=== PATIENT | female | born 2005 | race Caucasian/White ===

== ENCOUNTER 2023-07-23 13:00 | Outpatient (REF) | payer OTHER, SELFPAY ==
--- NOTE | ~2023-07-23 | US_ITS ---
EXAMINATION: US PELVIS COMPLETE CLINICAL INFORMATION: Pelvic and perineal pain COMPARISON: None TECHNIQUE: Transabdominal and transvaginal imaging was performed though transvaginal imaging was terminated prematurely. FINDINGS: The uterus is of normal size and echogenicity measuring 5.3 x 2.3 x 3.7 cm. A regular homogeneous endometrium is identified measuring 0.3 cm. Both ovaries are of normal size and echogenicity. The right measures 3.1 x 1.4 x 1.5 cm for a volume of 3.5 mL. The left measures 1.7 x 1.9 x 1.5 cm for a volume of 2.4 mL. There is no pelvic free fluid. US/US pelvic complete IMPRESSION: Unremarkable pelvic ultrasound.
== END 2023-07-23 13:01 | disposition home or self-care (01) ==
LOC: HO.UMASIMG 13:00
PROVIDERS: Visit Provider Family Medicine
DX: R10.2 Pelvic and perineal pain (principal); N76.0 Acute vaginitis
CPT/HCPCS: 76856

== ENCOUNTER 2024-08-13 09:05 | Outpatient (REF) | payer OTHER, SELFPAY ==
--- NOTE | ~2024-08-13 | US_ITS ---
EXAMINATION: US PELVIS TRANSABDOMINAL AND TRANSVAGINAL HISTORY: IRREGULAR BLEEDING X 3 WEEKS COMPARISON: Comparison is made with the prior examination dated 07/23/2023. TECHNIQUE: Transabdominal and endovaginal real-time 2D morrison-scale ultrasound was performed. FINDINGS: Uterus: The uterus is normal in size, measuring 5.8 x 2.4 x 4.2 cm. Myometrium has a normal echotexture. No fibroids are identified. Endometrium: The endometrial stripe measures 1 mm in thickness. Right ovary: The right ovary measures 2.7 x 1.4 x 1.1 cm. The right ovary is normal in size and echotexture. Left ovary: The left ovary measures 2.3 x 1.7 x 1.6 cm. The left ovary is normal in size and echotexture. Pelvic fluid: none. US/US pelvic and transvaginal IMPRESSION: Unremarkable pelvic ultrasound. Electronically signed by: Low Youssef MD 08/14/2024 07:21 AM EDT
== END 2024-08-13 09:06 | disposition home or self-care (01) ==
LOC: HO.UMASIMG 09:05
PROVIDERS: Visit Provider Nurse Practitioner Women's Health
DX: N92.6 Irregular menstruation, unspecified (principal)
CPT/HCPCS: 76830; 76856

== ENCOUNTER → 2024-08-13 14:00 | Outpatient (BNV) | payer OTHER, SELFPAY | PROVIDERS: Visit Provider Radiology Diagnostic Radiology | DX: N92.6 Irregular menstruation, unspecified (principal) | CPT/HCPCS: 76830; 76856 ==